=== PATIENT | female | born 1990 | race Caucasian/White ===

== ENCOUNTER 2016-11-25 13:31 | Emergency (ER) | payer OTHER ==
[~2016-11-25] VITALS: Ht 180.3 cm; Wt 102.1 kg
[~2016-11-25 13:31] MED LIST: CITALOPRAM HBR10 MG PO; CODEINE-GUAIFE473 ML PO; GUAIATUSSIN AC10 ML PO; ORTHO TRI-CYCL1 EACH PO; ORTHO-CYCLEN1 EACH PO; PRENATAL TABLE1 EAC1 PO; TYLENOL325 MG PO; ZITHROMAX250 MG PO; ZYRTEC10 MG PO
[2016-11-25] MEDS ORDERED: BUPROPION XL300 MG PO (13:55)
== END 2016-11-25 15:16 | disposition home or self-care (01) ==
LOC: ED 13:31
DX: N94.0 Mittelschmerz (principal); F17.200 Nicotine dependence, unspecified, uncomplicated; Z88.0 Allergy status to penicillin; Z79.899 Other long term (current) drug therapy
CPT/HCPCS: 81001; 84703; 99283